=== PATIENT | male | born 1995 | race Caucasian/White ===

== ENCOUNTER 2019-10-02 20:10 | Emergency (ER) | payer OTHER ==
[2019-10-02 20:15] VITALS: TEMP 98.8; BMI 29.1
--- NOTE | 2019-10-02 20:16 | PDOC ---
Rapid Medical Evaluation Medical Evaluation: 10/02/19 20:13 CC: sore throat x6 days. 3rd visit for same. PE: 2+tonsils with exudate present. Uvula is midline. Orders: nothing Patient will proceed to ED for continued evaluation. Discharge Disposition - Diagnosis Pharyngitis - Referrals - Patient Instructions - Post Discharge Activity
--- NOTE | 2019-10-02 21:15 | PDOC ---
History of Present Illness - General Chief Complaint: Sore Throat Stated Complaint: COUGH/FEVER/SORE THROAT Time Seen by Provider: 10/02/19 21:02 History Source: Patient - History of Present Illness Initial Comments: 10/02/19 21:51 Chief complaint: Sore throat Patient is a healthy 24-year-old male who was seen last week for fever and sore throat and an urgent care, the strep was negative but patient was started on Augmentin. Patient also was not getting better, went to [facility] on Sunday, had a CT scan which showed a questionable abscess, he was transferred to [facility] but he was further evaluated there and released from the ER. Patient at 1 dose of steroids on Sunday. Patient states he is getting somewhat better but continues to have some fever although afebrile here and did not take any antipyretics today. Patient has been able to drink, is able to eat small amount of food. But he tried to eat and exam which instead of just trying eggs. Patient's voice is normal. GENERAL/CONSTITUTIONAL: No fever, weakness. dizziness HEAD, EYES, EARS, NOSE AND THROAT: No change in vision. No ear pain or discharge. No sore throat. CARDIOVASCULAR: No chest pain RESPIRATORY: No shortness of breath or cough GASTROINTESTINAL: No pain, nausea, vomiting, diarrhea or constipation GENITOURINARY: No dysuria MUSCULOSKELETAL: No neck or back pain SKIN: No rash NEUROLOGIC: No headache, vertigo, loss of consciousness, or loss of sensation. GENERAL: The patient is awake, alert, and fully oriented, in no acute distress. HEAD: Normal with no signs of trauma. EYES: Pupils equal, round and reactive to light, sclera anicteric, conjunctiva clear. ENT: pharynx: + erythema, + exudate, uvula midline, no signs of abscess. No sub -lingular swelling, voice is normal NECK: supple CHEST: clear, nontender, rr ABD: soft, nontender BACK: no tenderness or signs of injury EXTREMITIES: Normal range of motion, no edema. NEUROLOGICAL: Normal speech, normal gait. SKIN: Warm, Dry Past History - Past Medical History Allergies/Adverse Reactions: Allergies Allergy/AdvReac Type Severity Reaction Status Date / Time No Known Allergies Allergy Verified 10/02/19 20:15 Home Medications: Ambulatory Orders Clindamycin [Cleocin -] 600 mg PO Q6H #28 capsule 10/02/19 COPD: No - Psycho Social/Smoking Cessation Hx Smoking History: Never smoked *Physical Exam - Vital Signs Last Vital Signs Temp Pulse Resp BP Pulse Ox 98.8 F 98 H 18 130/79 99 10/02/19 20:13 10/02/19 20:13 10/02/19 20:13 10/02/19 20:13 10/02/19 20:13 Medical Decision Making - Medical Decision Making 10/02/19 21:56 24-year-old male with ongoing issue with pharyngitis/tonsillitis. Was on Augmentin, had 2 strep tests that were negative, had a CT scan which showed questionable abscess but was further evaluated at [place] in the city and discharged from the ER. He was transferred there from [place] on Sunday. Patient does state he is improving but is still having difficulty eating food and is still running some fevers although is afebrile here and did not take antipyretics today. Patient has exudate and erythema, no signs of abscess, no signs of sublingual swelling. Patient does not look grossly ill. Not consistent with the Lemierre's syndrome or Quinn's angina. Will do mono as patient is not sure if he had a test. Will put patient on clindamycin and strongly urged patient to follow-up with ENT tomorrow. Discussed issues, findings, results, applicable medications and treatments and follow-up. All these were understood and all questions were answered 10/02/19 22:14 Discharge - Discharge Information Problems reviewed: Yes Clinical Impression/Diagnosis: Pharyngitis Qualifiers: Pharyngitis/tonsillitis etiology: unspecified etiology Qualified Code(s): J02.9 - Acute pharyngitis, unspecified Condition: Stable Disposition: HOME - Additional Discharge Information Prescriptions: Clindamycin [Cleocin -] 600 mg PO Q6H #28 capsule - Follow up/Referral Referrals: Kelvin Barry MD [Staff Physician] - - Patient Discharge Instructions Patient Printed Discharge Instructions: DI for Pharyngitis/Tonsillopharyngitis -- Adult Additional Instructions: Drink 2-3 L of water daily Take clindamycin, 300 mg every 6 hours for 7 days Sure you are taking a probiotic as discussed keep taking this for at least 2 weeks after you finish the antibiotics Take Tylenol 650 mg every 4 hours or Motrin 600 mg every 6 hours for fever and pain Return to the nearest ER if short of breath, unable to swallow or feeling sicker You can call here Sunday after 10 AM at [phone] for the results You can call Dr. Barry in the morning or see any other doctor and [facility] for further evaluation - Post Discharge Activity
[2019-10-02] MEDS ORDERED: ACETAMINOPHEN 650 MG/20.3 ML ORAL SOLUTION (CUPS) PO ONE (21:16)
[2019-10-02] MEDS ORDERED: DEXAMETHASONE LIQUID 0.5 MG/5 ML PO ONE (21:17)
[2019-10-02] MEDS ORDERED: LIDOCAINE VISCOUS 2% ORAL/TOP 20 ML UNIT-DOSE CUP MM ONE (21:17)
[2019-10-02] MEDS ORDERED: DEXAMETHASONE SOD PHOSPHATE 10 MG/1 ML VIAL ONE (21:21)
[2019-10-02] MEDS ORDERED: LIDOCAINE VISCOUS 2% ORAL/TOP 20 ML UNIT-DOSE CUP ONE (21:21)
[2019-10-02] MEDS ORDERED: ACETAMINOPHEN 650 MG/20.3 ML ORAL SOLUTION (CUPS) ONE (21:21)
[2019-10-02 22:34] VITALS: BP 125/71; PULSE 81
== END 2019-10-02 21:25 | disposition home or self-care (01) ==
LOC: JERFT 20:10
DX: J02.9 Acute pharyngitis, unspecified (principal)
CPT/HCPCS: 36415; 86308; 99283-25